=== PATIENT | male | born 1945 | race Caucasian/White ===

== ENCOUNTER 2024-11-19 15:06 | Emergency (ER) | payer MEDICARE, OTHER ==
[2024-11-19 17:12] LABS: #Basophils Less than 0.03 10x3/uL (0.0-0.2); #Eosinophils Less than 0.03 10x3/uL (0.0-0.5); #Neutrophils 7.54 10x3/uL (1.5-8.4); %Basophils 0.2 % (0.0-2.0); %Eosinophils 0.1 % (0.0-6.0); %Lymphocytes 10.4 % (18.0-47.0); %Monocytes 7.6 % (0.0-10.0); %Neutrophils 81.4 % (40.0-75.0); Hematocrit 42.8 % (38.8-50.0); Hemoglobin 14.7 g/dL (13.5-17.5); Mean Corpuscular HGB CONC 34.3 g/dL (32.0-36.0); Mean Corpuscular Volume 93.2 fL (81.2-95.1); Mean Platelet Volume 10.1 fL (7.4-10.4); Platelet Count 284 10x3/uL (150-450); RBC Distribution Width 12.8 % (11.5-14.5); Red Blood Cell (RBC) Count 4.59 10x6/uL (4.32-5.72); White Blood Cell (WBC) Count 9.26 10x3/uL (3.5-10.5)
[2024-11-19 17:29] LABS: ALT (SGPT) 17 U/L (Less than 45); AST (SGOT) 25 U/L (11-34); Albumin 4.2 g/dL (3.1-4.5); Alkaline Phosphatase 116 U/L (40-110); Anion Gap 20 mmol/L (10-20); BUN (Urea Nitrogen) 60 mg/dL (8.4-25.7); Bilirubin, Total 1.3 mg/dL (0.3-1.2); Calc. Creatinine Clearance 0 mL/min (70-130); Calcium 9.6 mg/dL (7.8-10.44); Carbon Dioxide 19 mmol/L (23-31); Chloride 106 mmol/L (98-107); Estimated GFR 37; Globulin 4.3 g/dL (2.4-3.5); Glucose 107 mg/dL (83-110); Potassium 5.2 mmol/L (3.5-5.1); Protein, Total 8.5 g/dL (5.8-8.1); Sodium 140 mmol/L (136-145)
[2024-11-19 19:49] LABS: Bilirubin Neg (Negative); Blood, Urine 250 (Negative); Clarity Slightly Cloudy (Clear); Glucose, Urine (Dipstick) Normal (Negative); Ketone, Urine Negative (Negative); Leukocyte 500 (Negative); Nitrite Positive (Negative); Protein, Urine (Dipstick) 100 mg/dl (Neg-Trace); Urobilinogen Normal mg/dL (Less than 2)
[2024-11-19] MEDS ORDERED: cefTRIAXone (ROCEPHIN) 1 GM VIAL ONE (20:12)
[2024-11-19 20:14] LABS: CAUTI Indications for Culture Pelvic or flank pain; Squamous Epithelial 0-3 HPF (0-3)
[2024-11-19 20:15] LABS: Bacteria/HPF 4+ HPF (None Seen)
[2024-11-19 20:16] LABS: Urine Culture Reflex Yes Yes
== END 2024-11-19 21:00 | disposition home or self-care (01) ==
LOC: CSHERS 15:06
DX: N39.0 Urinary tract infection, site not specified (principal); I10 Essential (primary) hypertension
CPT/HCPCS: 71045; 80053; 81001; 83605; 84145; 85025; 87040; 87077; 87086; 87186; 87428; J0696; 36415; 96374